=== PATIENT | male | born 1995 | race Caucasian/White ===

== ENCOUNTER 2016-11-25 15:17 | Emergency (ER) | payer OTHER ==
[~2016-11-25] VITALS: Ht 180.3 cm; Wt 81.4 kg
[2016-11-25 15:22] VITALS: Ht 180.3 cm; Wt 81.4 kg
[2016-11-25] MEDS ORDERED: HYDROCODONE/APAP (5/325) TAB PO ONE (18:30)
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
--- NOTE | 2016-11-25 20:01 | RADRPT ---
PROCEDURE: XR Right Ankle. CLINICAL INDICATION: Injury and swelling with pain in the right ankle. TECHNIQUE: AP, oblique and lateral views of the right ankle were performed. COMPARISON: None. FINDINGS: There is normal mineralization and alignment. Oblique fracture of the distal fibular metaphysis. The mortise appears substantially intact and sym metric. Remaining osseous structures without acute fracture or dislocation. The joints are normal. The soft tissues are unremarkable. IMPRESSION: Oblique fracture of the distal fibular metaphysis. RPTAT: [facility] Physician Priyanka Date Time Electronically viewed and signed by Physician Priyanka on 11/25/2016 20:01 RS/
[2016-11-25] MEDS ORDERED: HYDR-906 PO (20:26)
[2016-11-25] MEDS ORDERED: NAPR-260 PO (20:27)
[2016-11-25 21:07] VITALS: PULSE 74; RESP 20; TEMP 98.4
== END 2016-11-25 20:45 | disposition home or self-care (01) ==
LOC: FTE 15:17
DX: S82.62XA Displaced fracture of lateral malleolus of left fibula, initial encounter for closed fracture (principal); V00.131A Fall from skateboard, initial encounter; Y92.9 Unspecified place or not applicable; Z72.0 Tobacco use
CPT/HCPCS: 29515; 73610; Z7502; Z7610